=== PATIENT | female | born 1955 | race American Indian/Alaskan Native ===

== ENCOUNTER 2018-07-04 16:38 | Emergency (ER) | payer OTHER ==
[2018-07-04 16:54] VITALS: BP 159/88; PULSE 89; RESP 20; TEMP 98.8; O2SAT 95
--- NOTE | 2018-07-04 17:17 | C.PDOC ---
History Of Present Illness 62 year old female presents to the ED for evaluation of redness and watery discharge from bilateral eyes which began around 4 days ago. Patient notes contact with coworkers, who have had pink eye. She also reports itchiness. Patient denies fever, cough, vision change, contact lens use, or history of eye surgery. Time Seen by Provider: 07/04/18 17:01 Chief Complaint (Nursing): Eye Problem History Per: Patient History/Exam Limitations: no limitations Onset/Duration Of Symptoms: Days (4) Current Symptoms Are (Timing): Still Present Injury To Eye?: No Wears Contact Lens?: No Associated Symptoms: Discharge From Eye. denies: Decreased Vision Additional History Per: Patient Past Medical History Reviewed: Historical Data, Nursing Documentation, Vital Signs Vital Signs: Last Vital Signs Temp 98.8 F 07/04/18 16:42 Pulse 89 07/04/18 16:42 Resp 20 07/04/18 16:42 BP 159/88 H 07/04/18 16:42 Pulse Ox 95 07/04/18 20:00 - Medical History PMH: HTN Denies: Chronic Kidney Disease Surgical History: No Surg Hx Family History: States: Unknown Family Hx - Social History Hx Alcohol Use: No Hx Substance Use: No - Immunization History Hx Tetanus Toxoid Vaccination: Yes Hx Influenza Vaccination: Yes Hx Pneumococcal Vaccination: Yes Review Of Systems Constitutional: Negative for: Fever, Chills Eyes: Positive for: Redness. Negative for: Vision Change Respiratory: Negative for: Cough Physical Exam - Physical Exam Appears: Non-toxic, No Acute Distress Skin: Normal Color, Dry, No Rash Head: Atraumatic, Normacephalic Eye(s): bilateral: PERRL, EOMI, Other (conjunctival injection, crusting to eyelids. no tenderness. No foreign body on lid eversion ) Oral Mucosa: Moist Neck: Normal ROM, Supple Extremity: Normal ROM Neurological/Psych: Oriented x3, Normal Speech, Normal Cognition Gait: Steady ED Course And Treatment O2 Sat by Pulse Oximetry: 95 (on RA) Pulse Ox Interpretation: Normal Disposition - Disposition Referrals: Ruperto Summers MD [Staff Provider] - Disposition: HOME/ ROUTINE Disposition Time: 17:15 Condition: GOOD Additional Instructions: Follow up with the Eye doctor within 1-2 days without fail. Return if worsened. Prescriptions: Tobramycin 0.3% [Tobramycin 5 Ml] 1 drop OU TID #1 bottle Instructions: Conjunctivitis ([place]) (DC) Forms: [facility] (Romanian), Work Excuse - Clinical Impression Clinical Impression: Conjunctivitis - PA / HOSPITAL AIDE / Resident Statement MD/DO has reviewed & agrees with the documentation as recorded. - Scribe Statement The provider has reviewed the documentation as recorded by the Scribe (Leanne Nicole) All medical record entries made by the Scribe were at my direction and personally dictated by me. I have reviewed the chart and agree that the record accurately reflects my personal performance of the history, physical exam, medical decision making, and the department course for this patient. I have also personally directed, reviewed, and agree with the discharge instructions and disposition.
== END 2018-07-04 17:22 | disposition home or self-care (01) ==
LOC: C.ER 16:38
DX: H10.9 Unspecified conjunctivitis (principal)

== ENCOUNTER 2018-10-16 12:47 | Emergency (ER) | payer OTHER ==
[2018-10-16 12:53] VITALS: BMI 42.0
[2018-10-16 12:56] VITALS: BP 128/78; PULSE 93; RESP 20; TEMP 98.5; O2SAT 97
[2018-10-16] MEDS ORDERED: Tdap Vaccine 0.5 ml Vial (10-64 yrs) IM ONE (13:01)
--- NOTE | 2018-10-16 13:11 | C.PDOC ---
History Of Present Illness 63 y/o female [employer] employee with PMH of HTN presents to the ED c/o right forearm pain s/p injury 15 min [employer]. Pt was in the store room upstairs reaching for something when she tripped and fell over a wooden pallet, sustaining an abrasion to her right dorsal forearm. Pain in right forearm worse with movement. Has not taken any medication for pain. Unknown last tetanus vaccine. Denies head strike, LOC, numbness, paresthesias, elbow pain, shoulder pain, or any other associated symptoms. - HPI Time Seen by Provider: 10/16/18 12:55 Chief Complaint (Nursing): Trauma History Per: Patient History/Exam Limitations: no limitations Onset/Duration Of Symptoms: Mins Injury Occurred (Timing): Just Before Arrival Location Of Injury: Right: Forearm Severity: Mild Recent travel outside of the [place]: No Additional History Per: Patient - Fall Fall:Prior To Injury: Tripped, Lost Balance Past Medical History Reviewed: Historical Data, Nursing Documentation, Vital Signs Vital Signs: Last Vital Signs Temp 98.5 F 10/16/18 12:52 Pulse 93 H 10/16/18 12:52 Resp 20 10/16/18 12:52 BP 128/78 10/16/18 12:52 Pulse Ox 97 10/16/18 12:52 - Medical History PMH: HTN Denies: Chronic Kidney Disease Family History: States: Unknown Family Hx - Social History Hx Alcohol Use: No Hx Substance Use: No - Immunization History Hx Tetanus Toxoid Vaccination: No Hx Influenza Vaccination: Yes Hx Pneumococcal Vaccination: No Review Of Systems Except As Marked, All Systems Reviewed And Found Negative. Constitutional: Negative for: Fever, Chills Eyes: Negative for: Vision Change Cardiovascular: Negative for: Chest Pain, Palpitations, Light Headedness Respiratory: Negative for: Cough, Shortness of Breath Gastrointestinal: Negative for: Nausea, Vomiting, Abdominal Pain Musculoskeletal: Positive for: Arm Pain (right forearm). Negative for: Neck Pain, Shoulder Pain, Back Pain, Hand Pain Skin: Positive for: Other (abrasion right forearm) Neurological: Negative for: Weakness, Numbness, Dizziness Physical Exam - Physical Exam Appears: Well, Non-toxic, No Acute Distress Skin: Normal Color, Warm, Dry Head: Atraumatic, Normacephalic, No Tenderness, No Swelling, No Abrasion, No Laceration Eye(s): bilateral: Normal Inspection, PERRL, EOMI Nose: Normal Oral Mucosa: Moist Throat: Normal Neck: Normal, Normal ROM, No Midline Cervical Tenderness, No Paracervical Tenderness Chest: Symmetrical, No Deformity, No Tenderness Cardiovascular: Rhythm Regular Respiratory: Normal Breath Sounds Gastrointestinal/Abdominal: Normal Exam, Soft, No Tenderness Back: Normal Inspection, No Vertebral Tenderness, No Paraspinal Tenderness Extremity: Normal ROM, Tenderness (right medial forearm), Capillary Refill (<2s), No Deformity, No Swelling, Other (abrasion along length of right dorsal medial forearm) Extremity: Left: Atraumatic, Normal Color And Temperature, Bilateral: Normal ROM Pulses: Left Radial: Normal, Right Radial: Normal Neurological/Psych: Oriented x3, Normal Speech, Normal Cognition, Normal Cranial Nerves, Normal Motor, Normal Sensation Gait: Steady ED Course And Treatment O2 Sat by Pulse Oximetry: 97 Medical Decision Making Medical Decision Making: Initial Plan: * Wound cleaning * XR right forearm * XR right elbow * TDaP * Tylenol * Reassess and Disposition Reports decreased pain after medication. Wound cleaned and dressed by nursing. JOSE bandage applied by me. Xrays negative for any acute fracture or dislocation. Plan of care discussed with patient, and strict instructions given regarding prescriptions, importance of follow up, and signs to return to Emergency Department, to include worsening pain, signs of wound infection, or any other new/worsening symptoms. Patient verbalizes understanding of discussion. Patient A&Ox3, ambulating with steady gait, stable for discharge home. Disposition - Disposition Referrals: Norm Lima III, MD [Staff Provider] - Disposition: HOME/ ROUTINE Disposition Time: 13:20 Condition: IMPROVED Additional Instructions: Keep abrasion clean, dry, and covered Rest, elevate, ice injured arm Ibuprofen/tylenol for pain Followup with orthopedics for persistent pain Followup with primary doctor within 2 days Return to ER for any new/worsening symptoms Instructions: Skin Abrasions, Wound Care (DC) Forms: General Discharge Instructions, [facility] ([place]), Work Excuse - Clinical Impression Clinical Impression: Arm injury, Abrasion
[2018-10-16] MEDS ORDERED: Bacitracin 500 Units/gm Oint Foilpak UD TOP ONE (13:42)
[2018-10-16] MEDS ORDERED: Bacitracin 500 Units/gm Oint Foilpak UD ONE (13:45)
--- NOTE | 2018-10-16 16:44 | RAD ---
PROCEDURE: Radiographs of the Right Forearm HISTORY: fall, pain abrasion right forearm COMPARISON: None available. TECHNIQUE: Frontal and lateral views obtained. FINDINGS: BONES: No fracture or destructive lesion. JOINT SPACES: Unremarkable. OTHER FINDINGS: Along the medial and lateral distal humeral epicondyles are bony excrescence possibly osseous tug lesions relating to ligamentous tendon pulling and/or calcific/ossified the tendinopathy changes Degenerative changes at the wrist level are also noted and a few small posterior olecranon spurs are present. IMPRESSION: No fracture or dislocation. Other findings as above.
--- NOTE | 2018-10-16 16:46 | RAD ---
Date of service: 10/16/2018 PROCEDURE: Radiographs of the right elbow. HISTORY: fall, pain abrasion right forearm/elbow COMPARISON: No prior. FINDINGS: BONES: No fracture JOINTS: Arthrosis SOFT TISSUES: Apparent abrasion clinically evident. JOINT EFFUSION: None significant OTHER FINDINGS: Along the medial and lateral distal humeral epicondyles are bony excrescence possibly osseous tug lesions relating to ligamentous tendon pulling and/or calcific/ossified the tendinopathy changes Degenerative changes at the wrist level are also noted and a few small posterior olecranon spurs are present. Medial ulnar spurring present IMPRESSION: No fracture or dislocation. Multifocal spurring. Other findings as above.
== END 2018-10-16 13:56 | disposition home or self-care (01) ==
LOC: C.ER 12:47
DX: S50.811A Abrasion of right forearm, initial encounter (principal); W01.0XXA Fall on same level from slipping, tripping and stumbling without subsequent striking against object, initial encounter; Y92.89 Other specified places as the place of occurrence of the external cause; Y99.0 Civilian activity done for income or pay